=== PATIENT | female | born 1980 | race Caucasian/White ===

== ENCOUNTER 2016-09-08 15:07 | Emergency (ER) | payer SELFPAY ==
[~2016-09-08] VITALS: Ht 162.6 cm; Wt 90.1 kg
[~2016-09-08 15:07] MED LIST: ALIVE PO; lactaid PO
[2016-09-08 15:12] VITALS: TEMP 36.9; Ht 162.6 cm; Wt 90.1 kg
[2016-09-08 15:46] LABS: BASO % 0.5 %; BASO ABS # 0.03 K/uL (0-0.2); COMPLETE YES; HEMATOCRIT 30.8 % (37-47); IG% 0.2 %; LYMPH % 31.4 %; LYMPH ABS # 1.77 K/uL (1.2-3.4); MEAN CELL VOLUME 84.8 fL (80-100); MEAN CORPUSCULAR HEMOGLOBIN 28.7 pg (25-34); MEAN CORPUSCULAR HGB CONC 33.8 g/dl (32-36); MEAN PLATELET VOLUME 10.9 fL (7.4-10.4); MONO % 12.1 %; NEUT % 53.8 %; PLATELET COUNT 280 K/uL (130-400); RED BLOOD COUNT 3.63 M/uL (4.2-5.4); WHITE BLOOD COUNT 5.64 K/uL (4.8-10.8)
[2016-09-08 16:01] LABS: BUN/CREATININE RATIO 11.5 (10-20); CALCIUM 8.1 mg/dl (8.5-10.1); CREATININE 0.95 mg/dl (0.60-1.20); POTASSIUM 3.6 mmol/L (3.5-5.1)
[2016-09-08 16:04] LABS: ALB/GLOB RATIO 0.8 (0.9-2)
[2016-09-08] MEDS ORDERED: MULT-513 PO (16:07)
[2016-09-08] MEDS ORDERED: FERR325T PO (16:09)
[2016-09-08 17:07] LABS: PREG INTERNAL NEGATIVE QC NEG CLEAR BACKGROUND; PREG INTERNAL POSITIVE QC POS CONTROL LINE
[2016-09-08 17:12] LABS: MANUAL MICROSCOPIC REQUIRED? YES; REVIEW REQ? NO; URINE APPEARANCE TURBID (CLEAR); URINE COLOR RED
[2016-09-08 17:13] LABS: SULFASALICYLIC ACID POS (NEG)
[2016-09-08 17:19] LABS: URINE AMORPHOUS SEDIMENT PRESENT (NONE PRSENT); URINE BACTERIA NEG (NEG); URINE RBC >30 /hpf (0-4)
[2016-09-08 17:20] LABS: ZZUR CULT IF INDIC CLEAN CATCH NO
--- NOTE | 2016-09-08 17:32 | DIAGNOSTIC IMAGING REPORT ---
ULTRASOUND OF THE PELVIS CLINICAL HISTORY: Pelvic pain. Heavy vaginal bleeding. COMPARISON STUDY: No priors. TECHNIQUE: Real-time, grayscale, and color flow sonography of the pelvis is performed both transabdominally and endovaginally. Images are reviewed in the transverse and longitudinal planes. FINDINGS: Uterus: The uterus is normal in size and echotexture, measuring 8.3 x 4.8 x 6.3 cm. Endometrium: The endometrium is normal in appearance, and the endometrial stripe is normal in thickness measuring up to 0.6 cm. Nonspecific flow suggested within the endometrium on color imaging. Ovaries: The left ovary was not visualized. The right ovary is normal in appearance and measures 2.1 x 1.2 x 1.5 cm. Small right ovarian follicles are identified. Normal Doppler waveforms are shown within the right ovary. Pelvis: There is trace free fluid in the cul-de-sac. No concerning adnexal lesion is seen. IMPRESSION: 1. No acute sonographic abnormality is identified. 2. Nonvisualization of the left ovary. 3. There is nonspecific vascularity suggested within the endometrium on color imaging. The endometrial stripe is normal in thickness measuring up to 6 mm. 4. There is trace free fluid in the cul-de-sac, likely within physiologic limits. Electronically signed by: Gerard Shearer M.D. 09/08/2016 5:31 PM Dictated Date/Time: 09/08/2016 5:29 PM
[2016-09-08 17:34] VITALS: BP 106/80; PULSE 91; O2SAT 96
[2016-09-08] MEDS ORDERED: KETOROLAC TROMETHAMINE 30 MG/ML VIAL IV STA (17:35)
--- NOTE | 2016-09-08 18:07 | EMERGENCY ROOM VISIT NOTE ---
History First contact with patient: 15:14 Chief Complaint: ED VAG BLEEDING Stated Complaint: BAD CRAMPS AND LOWER BACK PAIN, TENDERNESS History of Present Illness The patient is a 36 year old female who presents to the Emergency Room with complaints of heavy vaginal bleeding and cramps. The patient reports that she has had issues with her periods for the past 1 year and a half. She reports that last month, her menstrual period lasted for 3 weeks. She followed up with her BLOWER INSTALLER and they prescribed her Aygestin and scheduled her for an ultrasound. She states that her period this month began approximately 9 days ago. She reports that it has been very painful and heavier than normal. She has been changing a pad every 1-2 hours, but on a few occasions she has blood through a pad after only 20 minutes. She does report a history of anemia and states that her most recent hemoglobin was stable. She does report a family history of heavy periods which required hysterectomy. She states the pain as a cramping sensation in her lower abdomen which radiates to the back. She rates the discomfort a 6/10. She has been taking Midol and using a heating pad for the pain. She denies a family history of bleeding disorders. She denies any urinary symptoms, nausea, vomiting or chance of . Review of Systems A complete 10-point Review of Systems was discussed with the patient, with pertinent positives and negatives listed in the History of Present Illness. All remaining Review of Systems questions can be considered negative unless otherwise specified. Past Medical/Surgical History Medical Problems: (1) PREV DELIVRY W/ OR W/O MENT ANTEPART COND Social History Smoking Status: Never Smoker Alcohol Use: other Drug Use: none Marital Status: , Housing Status: lives with family Occupation Status: employed Current/Historical Medications Scheduled Ferrous Sulfate (Ferrous Sulfate), 1 TAB PO BID Multivitamins/Minerals (Mvi With Minerals), 1 TAB PO DAILY Allergies Coded Allergies: No Known Allergies (Unverified , 09/08/16) Physical Exam Vital Signs Date Time Temp Pulse Resp B/P Pulse Ox O2 Delivery O2 Flow Rate FiO2 09/08/16 17:34 91 18 106/80 96 Room Air 09/08/16 16:33 94 18 127/75 99 Room Air 09/08/16 15:12 36.9 92 18 144/88 97 Room Air Pain Rating (0-10): 8.0 Physical Exam VITALS: Vitals are noted on the nurse's note and reviewed by myself. Vital signs stable. GENERAL: This is a 36-year-old female, in no acute distress, nondiaphoretic, well-developed well-nourished. SKIN: Capillary reflex less than 2 seconds. HEENT: Normocephalic. PERRLA. EOMI. Nares patent. Mucous membranes moist. Neck is supple without nuchal rigidity. HEART: Regular rate and rhythm without murmurs gallops or rubs. LUNGS: Clear to auscultation bilaterally without wheezes, rales or rhonchi. ABDOMEN: Positive bowel sounds x 4. Soft, nondistended, mild tenderness to palpation across the lower abdomen. NEURO: Patient was alert and oriented to person place and time. Medical Decision & Procedures ER Provider Diagnostic Interpretation: ULTRASOUND OF THE PELVIS CLINICAL HISTORY: Pelvic pain. Heavy vaginal bleeding. COMPARISON STUDY: No priors. TECHNIQUE: Real-time, grayscale, and color flow sonography of the pelvis is performed both transabdominally and endovaginally. Images are reviewed in the transverse and longitudinal planes. FINDINGS: Uterus: The uterus is normal in size and echotexture, measuring 8.3 x 4.8 x 6.3 cm. Endometrium: The endometrium is normal in appearance, and the endometrial stripe is normal in thickness measuring up to 0.6 cm. Nonspecific flow suggested within the endometrium on color imaging. Ovaries: The left ovary was not visualized. The right ovary is normal in appearance and measures 2.1 x 1.2 x 1.5 cm. Small right ovarian follicles are identified. Normal Doppler waveforms are shown within the right ovary. Pelvis: There is trace free fluid in the cul-de-sac. No concerning adnexal lesion is seen. IMPRESSION: 1. No acute sonographic abnormality is identified. 2. Nonvisualization of the left ovary. 3. There is nonspecific vascularity suggested within the endometrium on color imaging. The endometrial stripe is normal in thickness measuring up to 6 mm. 4. There is trace free fluid in the cul-de-sac, likely within physiologic limits. Laboratory Results 09/08/16 15:31 Red Blood Count 3.63, Mean Corpuscular Volume 84.8, Mean Corpuscular Hemoglobin 28.7, Mean Corpuscular Hemoglobin Concent 33.8, Mean Platelet Volume 10.9, Neutrophils (%) (Auto) 53.8, Lymphocytes (%) (Auto) 31.4, Monocytes (%) (Auto) 12.1, Eosinophils (%) (Auto) 2.0, Basophils (%) (Auto) 0.5, Neutrophils # (Auto ) 3.04, Lymphocytes # (Auto) 1.77, Monocytes # (Auto) 0.68, Eosinophils # (Auto ) 0.11, Basophils # (Auto) 0.03 09/08/16 15:31 Test 09/08/16 15:31 09/08/16 16:25 White Blood Count 5.64 K/uL (4.8-10.8) Red Blood Count 3.63 M/uL (4.2-5.4) Hemoglobin 10.4 g/dL (12.0-16.0) Hematocrit 30.8 % (37-47) Mean Corpuscular Volume 84.8 fL (80-100) Mean Corpuscular Hemoglobin 28.7 pg (25-34) Mean Corpuscular Hemoglobin Concent 33.8 g/dl (32-36) Platelet Count 280 K/uL (130-400) Mean Platelet Volume 10.9 fL (7.4-10.4) Neutrophils (%) (Auto) 53.8 % Lymphocytes (%) (Auto) 31.4 % Monocytes (%) (Auto) 12.1 % Eosinophils (%) (Auto) 2.0 % Basophils (%) (Auto) 0.5 % Neutrophils # (Auto) 3.04 K/uL (1.4-6.5) Lymphocytes # (Auto) 1.77 K/uL (1.2-3.4) Monocytes # (Auto) 0.68 K/uL (0.11-0.59) Eosinophils # (Auto) 0.11 K/uL (0-0.5) Basophils # (Auto) 0.03 K/uL (0-0.2) RDW Standard Deviation 41.9 fL (36.4-46.3) RDW Coefficient of Variation 13.6 % (11.5-14.5) Immature Granulocyte % (Auto) 0.2 % Immature Granulocyte # (Auto) 0.01 K/uL (0.00-0.02) Anion Gap 7.0 mmol/L (3-11) Est Creatinine Clear Calc Drug Dose 89.0 ml/min Estimated GFR () 89.3 Estimated GFR (Non- 77.1 BUN/Creatinine Ratio 11.5 (10-20) Calcium Level 8.1 mg/dl (8.5-10.1) Total Bilirubin 0.4 mg/dl (0.2-1) Aspartate Amino Transf (AST/SGOT) 10 U/L (15-37) Alanine Aminotransferase (ALT/SGPT) 23 U/L (12-78) Alkaline Phosphatase 80 U/L (45-117) Total Protein 7.6 gm/dl (6.4-8.2) Albumin 3.4 gm/dl (3.4-5.0) Globulin 4.2 gm/dl (2.5-4.0) Albumin/Globulin Ratio 0.8 (0.9-2) Urine Color RED Urine Appearance TURBID (CLEAR) Urine pH (4.5-7.5) Urine Specific [place] (1.000-1.030) Urine Protein (NEG) Urine Glucose (UA) (NEG) Urine Ketones (NEG) Urine Occult Blood (NEG) Urine Nitrite (NEG) Urine Bilirubin (NEG) Urine Urobilinogen (NEG) Urine Leukocyte Esterase (NEG) Urine RBC >30 /hpf (0-4) Urine WBC 1-5 /hpf (0-5) Urine Epithelial Cells >30 /lpf (0-5) Urine Amorphous Sediment PRESENT (NONE PRSENT) Urine Bacteria NEG (NEG) Urine Hyaline Casts 5-10 /lpf (0-5) Urine Test NEG (NEG) Medications Administered Medications (Trade) Dose Ordered Sig/Milly Route Start Time Stop Time Status Last Admin Dose Admin Ketorolac Tromethamine (Toradol Inj) 30 mg NOW STAT IV 09/08/16 17:35 09/08/16 17:36 DC 09/08/16 17:40 30 MG Medical Decision Differential diagnosis includes endometriosis, uterine fibroid, ectopic , abnormal uterine bleeding, malignancy, among others. The patient was evaluated as above. Labs were drawn and IV access was obtained. Imaging studies were performed and read by radiology as above. The patient was medicated with 30 mg Toradol for her cramping. The patient was reassessed multiple times during their stay in the emergency department and remained in stable condition. The patient is a 36-year-old female who presents today complaining of pelvic cramping and heavy vaginal bleeding. Labs revealed no leukocytosis or concerning electrolyte abnormalities. Patient is anemic with a hemoglobin of 10.4, but this does appear to be baseline for the patient. Her most recent hemoglobin earlier this month was 10.6. Urinalysis was not suggestive of infection. Urine was negative. Pelvic ultrasound was performed and read by radiology and showed a nonspecific vascularity of the endometrium with a normal endometrial thickness. I spoke with Dr. Montana of [facility]/ ROTOR CASTING MACHINE SETUP OPERATOR, who agreed that the patient likely will need definitive surgical treatment of her abnormal bleeding. He recommended an Aygestin taper and follow-up with BLOWER INSTALLER this week. The patient was given a handwritten prescription for the Aygestin taper and instructed to call BLOWER INSTALLER tomorrow. Conservative measures were discussed with the patient. She will return sooner for any worsening of her current condition. Based on the patient's presentation, lab results, and imaging studies, I feel the patient is stable for outpatient treatment. Discharge instructions were reviewed with the patient. The patient verbalized understanding of my assessment and treatment plan and was discharged home in good condition. Impression Primary Impression: Abnormal uterine bleeding Departure Information Dispostion Home / Self-Care Condition GOOD Referrals No Doctor, Assigned (PCP) Teresa Montana M.D. Patient Instructions My [facility] [place] [facility] Additional Instructions Take the Aygestin as prescribed. Call BLOWER INSTALLER tomorrow to schedule follow-up within one week. Return to the emergency department with any worsening bleeding, weakness, passing out or any other new/concerning symptoms.
[2016-11-04] MEDS ORDERED: IBUP-1050 PO (10:06)
[2016-11-04] MEDS ORDERED: IRON PO (10:06)
[2016-11-04] MEDS ORDERED: IBUP1CAP PO (10:06)
[2016-11-21] MEDS ORDERED: OXYC-57 PO (14:19)
== END 2016-09-08 18:10 | disposition home or self-care (01) ==
LOC: C.EDB 15:09
DX: N93.9 Abnormal uterine and vaginal bleeding, unspecified (principal); Z79.899 Other long term (current) drug therapy; D64.9 Anemia, unspecified

== ENCOUNTER 2016-11-21 09:28 | Observation (INO) | payer SELFPAY ==
[2016-11-04 10:06] VITALS: BMI 34.0
--- NOTE | 2016-11-04 10:38 | PAT Medication Instructions ---
Service Date November 04, 2016. Current Home Medication List Ibuprofen (Advil), 600 MG PO PRN Ibuprofen (Midol), 200 MG PO PRN Multivitamins/Minerals (Mvi With Minerals), 1 TAB PO QAM [Iron], 1 TAB PO QAM Medication Instructions For Your Scheduled Surgery - Hold the following medications the morning of surgery: Multivitamins/Minerals (Mvi With Minerals), 1 TAB PO QAM [Iron], 1 TAB PO QAM Ibuprofen (Advil), 600 MG PO PRN (otherwise okay to continue per surgeon) Ibuprofen (Midol), 200 MG PO PRN (otherwise okay to continue per surgeon) Nothing to eat or drink after midnight If you have any questions please call us at [phone] or [phone] or [phone]
--- NOTE | 2016-11-04 11:14 | DIAGNOSTIC IMAGING REPORT ---
CHEST PREADMISSION(PA/LAT) CLINICAL HISTORY: preop; enlarged thyroid COMPARISON STUDY: No previous studies for comparison. FINDINGS: The bones soft tissues and hemidiaphragms are normal. The cardiomediastinal silhouette is normal. The lungs are clear. The pulmonary vasculature is normal. IMPRESSION: Negative chest. Electronically signed by: Chase Posadas M.D. 11/04/2016 11:13 AM Dictated Date/Time: 11/04/2016 11:12 AM
[2016-11-04 11:30] LABS: BASO % 0.5 %; BASO ABS # 0.03 K/uL (0-0.2); COMPLETE YES; EOS % 1.2 %; HEMATOCRIT 34.3 % (37-47); IG% 0.2 %; LYMPH % 28.9 %; MEAN CELL VOLUME 80.9 fL (80-100); MEAN CORPUSCULAR HEMOGLOBIN 25.7 pg (25-34); MEAN CORPUSCULAR HGB CONC 31.8 g/dl (32-36); MEAN PLATELET VOLUME 11.2 fL (7.4-10.4); NEUT % 60.2 %; PLATELET COUNT 252 K/uL (130-400); RED BLOOD COUNT 4.24 M/uL (4.2-5.4); WHITE BLOOD COUNT 6.57 K/uL (4.8-10.8)
[2016-11-04 12:54] LABS: THYROID STIMULATING HORMONE 0.448 uIu/ml (0.300-4.500)
[2016-11-04 13:09] LABS: CALCIUM 8.4 mg/dl (8.5-10.1); CREATININE 0.82 mg/dl (0.60-1.20)
[~2016-11-21] VITALS: Ht 162.6 cm; Wt 90.4 kg
[2016-11-21] VITALS (8 sets, daily range): BP systolic 100–118; BP diastolic 66–79; PULSE 74–106; TEMP 36.4–37.2; O2SAT 95–98; Ht 162.6 cm; Wt 90.4 kg
[~2016-11-21 09:28] MED LIST changes: +ACETAMINOPHEN 1000 MG/100 ML IV IV ONE; -ALIVE PO; +ATROPINE SULFATE 0.1 MG/ML 5ML SYR IV PRN; +CEFAZOLIN 2000 MG/60 ML D5W 50 ML IV SCH; +DEXAMETHASONE SOD INJ 4 MG/ML VIAL ONE; +EpHEDrine SULFATE INJ 50 MG/ML AMP IV PRN; +FENTANYL CITRATE INJ 50 MCG/1 ML 2 ML VIAL IV PRN; +FENTANYL CITRATE INJ 50 MCG/1 ML 2 ML VIAL ONE; +GLYCOPYRROLATE INJ 0.2 MG/ML VIAL ONE; +HYDROmorphone INJ 1 MG/ML SYR IV PRN; +HYDROmorphone INJ 2 MG/ML SYR/VIAL ONE; +IBUP-1050 PO; +IBUP1CAP PO; +IRON PO; +LACTATED RINGER'S 1000ML 1,000 ML IV SCH; +LIDOCAINE HCL 2% 2 ML VIAL (20MG/ML) ONE; +MIDAZOLAM HCL 1 MG/ML 2ML VIAL ONE; +MULT-513 PO; +NEOSTIGMINE METHYLSULFATE 5 MG/5 ML SYR ONE; +ONDANSETRON INJ 2 MG/ML 2 ML VIAL IV PRN; +ONDANSETRON INJ 2 MG/ML 2 ML VIAL ONE; +PROPOFOL IV EMULSION 10 MG/ML 20 ML VIAL IV ONE; +ROCURONIUM BROMIDE 10 MG/ML 5 ML VIAL ONE; -lactaid PO
[2016-11-21] MEDS ORDERED: CETI10TA84 PO (10:04)
--- NOTE | 2016-11-21 11:42 | History & Physical Bridge Note ---
H&P Re-Evaluation Bridge Note: I have examined the patient, reviewed the History & Physical and in the interval since the performance of the History & Physical I have noted the following changes of clinical significance: No changes noted
[2016-11-21] MEDS ORDERED: BUPIVACAINE 0.5 % 5 MG/1 ML MPF 30ML VIAL ONE (11:56)
[2016-11-21] MEDS ORDERED: METHYLENE BLUE 0.5% 10 ML VIAL ONE (11:56)
[2016-11-21] MEDS ORDERED: ROCURONIUM BROMIDE 10 MG/ML 5 ML VIAL ONE (13:06)
[2016-11-21] MEDS ORDERED: FENTANYL CITRATE INJ 50 MCG/1 ML 2 ML VIAL ONE ×2 (13:40→14:40)
[2016-11-21] MEDS ORDERED: TISSEEL FIBRIN SEALANT 4ML TOP ONE (13:40)
[2016-11-21] MEDS ORDERED: LACTATED RINGER'S 1000ML 1,000 ML IV SCH (14:16)
--- NOTE | 2016-11-21 14:17 | [facility] Post Operative Brief Note ---
Immediate Operative Summary Operative Date Nov 21, 2016. Pre-Operative Diagnosis Menorrhagia Anemia Pelvic Pain Post-Operative Diagnosis Same as preop Procedure(s) Performed Robotic-assisted Total Laparoscopic Hysterectomy, bilateral salpingectomy, cystoscopy Surgeon Dr. Montana Tail Sawyer Surgeon(s) Dr. Harley Estimated Blood Loss 20 cc Findings adhesions Specimens A: uterus, cervix, bilateral fallopian tubes Drains Rojo Anesthesia General Complication(s) None Disposition Recovery Room / PACU
--- NOTE | 2016-11-21 14:18 | Discharge Instructions ---
Discharge Instructions Date of Service Nov 21, 2016. Admission Reason for Admission: Menorrhagia, Anemia Discharge Discharge Diagnosis / Problem: menorrhagia Discharge Goals Goal(s): Routine recovery after surgery Activity Recommendations Activity Limitations: per Instructions/Follow-up section . Instructions / Follow-Up Instructions / Follow-Up POST OPERATIVE: BOWEL FUNCTION/MEDICATIONS: 1. Constipation pain and discomfort are the most common complaints 5-7 days after surgery. Points 2-6 address the things that can help. 2. Chewing gum can help stimulate the gut and help improve digestion and motility. 3. Milk of Magnesia 1-2 times per day until return of bowel function. 4. Colace is a stool softener that helps. Taking this 2-3 times per day until bowel function returns to normal is highly recommended. 5. Dulcolax is a laxative that may be used if several days have passed without a bowel movement. Alternatively Miralax may be used daily instead. 6. Drink plenty of fluids as this will also reduce constipation. 7. Narcotic pain medications will be prescribed by your physician. They are safe to use and we encourage you to use them. If you are not allergic, ibuprofen will also be prescribed. Many patients will be able to transition off of the narcotic medications to ibuprofen by postoperative day 3. ACTIVITY RECOMMENDATIONS: 1. Get plenty of rest and listen to your body. If you are tired, take a nap. 2. You may shower, but do not take a tub bath until you see your doctor at the 2 week post operative visit. 3. Absolutely NO intercourse and nothing in the vagina until you are examined by your doctor at the 6 week visit. At that visit it will be determined when such activities can be resumed. This can range from 6-12 weeks after your surgery depending on healing time. 4. The main physical activity in the first week should be walking. By the second week you can slowly increase activity. There are no limits on walking up and down stairs. 5. Do not lift more than 5-10 lbs for 4 weeks. Remember the "one-handed rule", i.e. if you can lift something with only one hand it's likely okay. 6. Minimize line installation supervisor like vacuuming and exercising for 4 weeks. "Overdoing it" can lead to incisions not healing, pain and vaginal bleeding , so again, listen to your body. 7. Driving can be resumed when you feel able. Do not drive within 24 hours of taking a narcotic medication. EXPECTATIONS: 1. Vaginal spotting, bleeding and discharge are common after surgery. There may even be an odor to the discharge which is often related to sutures used in the vagina. If you experience heavy vaginal bleeding, call the office number day or night [phone]. 2. Bladder discomfort is common after surgery from the catheter. This usually resolves in 1-2 weeks. 3. By the end of the 3rd or 4th week you should be feeling much better. It may take up to 6 weeks for your energy levels to return to normal. 4. Narcotic medications have side effects such as: dizziness, headache, nausea and/or vomiting. If you suspect your pain medication is causing problems, call our office and we may be able to prescribe an alternate medication. 5. The skin incisions are often covered with a liquid bandage. This will gradually peel off over time. CALL THE OFFICE IF YOU HAVE ANY OF THE FOLLOWIN. Temperature of 101 degrees or higher. 2. Severe abdominal or pelvic pain not relieved by pain medication. 3. Persistent nausea or vomiting. 4. Increased pain with urination or difficulty urinating. 5. Bright red bleeding that soaks more than 1 pad per hour. CONTACT PHONE NUMBERS: Main Office: [phone] Surgical Nurse: [phone] extension [phone] Avoid all tobacco products. If you need help to stop smoking, call [place]'s FREE QUITLINE at . This is a free call. Current Hospital Diet Patient's current hospital diet: Discharge Diet Recommended Diet: Regular Diet Procedures Procedures Performed: Robotic-assisted Total Laparoscopic Hysterectomy, bilateral salpingectomy, cystoscopy Pending Studies Studies pending at discharge: no Medical Emergencies . Who to Call and When: Medical Emergencies: If at any time you feel your situation is an emergency, please call 911 immediately. . Non-Emergent Contact Non-Emergency issues call your: Carpentry Foreman . . "Provider Documentation" section prepared by Marvin Montana. . VTE Core Measure Inpt VTE Proph given/why not?: Noah Bravo, LEIGH's
[2016-11-21] MEDS ORDERED: OXYC-57 PO (14:19)
[2016-11-21] MEDS ORDERED: MEPERIDINE HCL 50 MG/ML CARP IV PRN ×2 (14:30)
[2016-11-21] MEDS ORDERED: OXYCODONE/ACETAMINOPHEN 5-325 TAB PO PRN ×2 (14:30)
[2016-11-21] MEDS ORDERED: MAGNESIUM HYDROXIDE SUSP 30 ML UDC PO PRN (14:30)
[2016-11-21] MEDS ORDERED: ACETAMINOPHEN 325 MG TAB PO PRN (14:30)
[2016-11-21] MEDS ORDERED: IBUPROFEN 600 MG TAB PO PRN (14:30)
[2016-11-21] MEDS ORDERED: ZOLPIDEM TARTRATE 5 MG TAB PO PRN (14:30)
[2016-11-21] MEDS ORDERED: PROMETHAZINE HCL INJ 25 MG in SODIUM CHLORIDE 0.9% 50ML 50 ML IV PRN (14:30)
[2016-11-21] MEDS ORDERED: BISACODYL 10 MG SUPP PR PRN (14:30)
[2016-11-21] MEDS ORDERED: ONDANSETRON INJ 2 MG/ML 2 ML VIAL IV PRN (14:30)
[2016-11-21] MEDS ORDERED: SIMETHICONE 80 MG CHEW PO PRN (14:30)
[2016-11-21] MEDS ORDERED: KETOROLAC TROMETHAMINE 30 MG/ML VIAL IV. PRN (14:30)
[2016-11-21] MEDS ORDERED: PROMETHAZINE HCL INJ 12.5 MG in SODIUM CHLORIDE 0.9% 50ML 50 ML IV PRN (14:30)
--- NOTE | 2016-11-21 15:14 | Anesthesiology Progress Note ---
Anesthesia Post Op Note Date & Time Nov 21, 2016 at 15:14 Vital Signs Pain Intensity: 2 Vital Signs Past 12 Hours Date Time Temp Pulse Resp B/P (MAP) Pulse Ox O2 Delivery O2 Flow Rate FiO2 11/21/16 15:05 36.2 83 16 103/62 98 Nasal Cannula 3 11/21/16 14:55 60 14 100/66 95 Nasal Cannula 3 11/21/16 14:45 92 16 112/61 97 Nasal Cannula 3 11/21/16 14:35 88 14 112/67 100 Mask 10 11/21/16 14:27 36.7 76 14 117/70 100 Mask 10 11/21/16 09:50 36.6 77 18 118/79 (92) 98 Room Air Notes Mental Status: alert / awake / arousable, participated in evaluation Pt Amnestic to Procedure: Yes Nausea / Vomiting: adequately controlled Pain: adequately controlled Airway Patency, RR, SpO2: stable & adequate BP & HR: stable & adequate Hydration State: stable & adequate Anesthetic Complications: no major complications apparent
[2016-11-21] MEDS: LACTATED RINGER'S 1000ML 1,000 ML IV SCH (15:22)
[2016-11-21] MEDS ORDERED: IV FLUIDS COMPLETED PRN (15:30)
--- NOTE | 2016-11-21 16:11 | OPERATIVE REPORT ---
DATE OF OPERATION: 11/21/2016 PREOPERATIVE DIAGNOSIS: Menorrhagia. POSTOPERATIVE DIAGNOSIS: Menorrhagia. PROCEDURE: Da Sung robotically-assisted total laparoscopic hysterectomy, bilateral salpingectomy with conservation of the ovaries, cystoscopy. SURGEON: Marvin Montana MD BLANKET CUTTER HAND: Jose Martin Harley MD ESTIMATED BLOOD LOSS: 20 mL. FINDINGS: Adhesions. SPECIMENS: Uterus, cervix, and bilateral fallopian tubes. DRAINS: Rojo catheter. ANESTHETIC: General. COMPLICATIONS: None. DISPOSITION: None. DISPOSITION: To recovery room. DESCRIPTION OF PROCEDURE: Cindy was given a general anesthetic, prepped and draped in dorsal lithotomy position. IV for prophylactic antibiotics given, Rojo catheter placed in her bladder and a VCare sewn into her cervix in usual fashion. Gloves changed and a supraumbilical incision was made with scalpel. Using Peng technique, we did a cut down through the subcutaneous fat through the fascia in the midline. Rectus muscle split and peritoneal cavity entered. Blunt-tipped Peng trocar then placed. Balloon inflated and CO2 gas to insufflate the abdomen. FINDINGS: Upper abdomen normal, no sign of visceral organ injury or bleeding. Deep Trendelenburg position then obtained and 3 robotic ports, 2 in the right, 1 in the left placed and a left upper quadrant accessory port 11 mm bladeless. There were some loose adhesions in the anterior abdominal wall of omentum and as well the bladder flap was notable for some adhesions as well, but these were expected as she had 2 prior C-sections. Adnexa appeared normal, as did the uterus. No evidence of endometriosis. The ureter seemed to follow the normal course. Procedure was begun by docking the robot; arm #1 was monopolar rika, arm #2 was bipolar [place], arm #3 was a ProGrasp. Using the manipulator, we identified the fallopian tubes and each side and removed them. These were then removed through the accessory port. We then identified the ureter on each side. The utero-ovarian blood supply was then coagulated distal to the ovary on the left side and then cut with monopolar rika, same with the round ligament. The bladder flap was then dissected away. Uterine vessels on the left side skeletonized and then coagulated with the bipolar [place]. Once these were coagulated, these were cut with monopolar rika. The bladder flap was fully dissected away sharply without monopolar energy. Same process on the right was completed. Once the bladder flap was completely dissected away, we made an anterior colpotomy with the monopolar rika continuing this around to stay medial over uterine vessel ligations and then the cervix from the vagina. Uterus was then pulled into the vagina for pneumoperitoneum. Instrument exchanges then occurred. Arm #1 became the jigna needle chassis driver, arm #2 became the cobra 12-inch 2-0 V-lock suture placed. We then through the accessory port, closed the cuff from left to right and right to left, ensuring full thickness 1 cm at least vaginal mucosa bites. Suture was then cut so there was no tail and then needle removed through the accessory port. Of note, methylene blue had been given prior to this. There was no leakage noted. We then performed cystoscopy by removing the Rojo catheter visualized a normal bladder, no sign of damage or sutures and good strong jets of urine from both left and right ureter openings. Cystoscope removed and a new Rojo catheter placed. The uterus had been removed from the vagina. Bleeding was minimal. At this stage, we then after irrigation and suction, identified the cuff and it was hemostatic. We did apply 4 mL of Tisseel to the area laparoscopically and then undocked the robot. Instruments were removed under direct visualization. Robot undocked. Ports removed. Gas allowed to escape. Incisions all injected with 0.5% Marcaine. Fascia closed carefully with [id number] 0 Vicryl, subcutaneous fat closed with 0 Vicryl as well as the 11-mm incision, 4-0 subcuticular Monocryl closures as well. Sponge and instrument counts were correct. The patient sent to recovery room in stable condition. I attest to the content of the Intraoperative Record and any orders documented therein. Any exceptions are noted below. SARAHD
[2016-11-21 20:05] LABS: HEMATOCRIT 33.3 % (37-47)
[2016-11-21] MEDS ORDERED: DOCUSATE SODIUM 100 MG CAP PO SCH (21:00)
--- NOTE | 2016-11-22 10:24 | DISCHARGE SUMMARY ---
Cindy had a total laparoscopic hysterectomy on 11/21/2016. This procedure was uncomplicated, operative note has been dictated. Her course in hospital was uncomplicated. Several hours after her surgery, she met criteria. At that stage, she was ambulating well, tolerating oral pain medication and oral diet, was voiding well, and had no extremity pain. PHYSICAL EXAMINATION: Vital signs were stable, afebrile. IMPRESSION AND PLAN: Hemoglobin 10.9 in the evening which was the same as her preoperative hemoglobin. She met criteria, was given discharge instructions, pain medication, and told to follow up in the office.
== END 2016-11-21 21:05 | disposition home or self-care (01) ==
LOC: C.ACU 09:28 → C.MS4N 10:00 → ENRESERV 15:05
PROVIDERS: ADMIT Obstetrics & Gynecology; ATTEND Obstetrics & Gynecology
DX: N92.0 Excessive and frequent menstruation with regular cycle (principal); R10.2 Pelvic and perineal pain; N72 Inflammatory disease of cervix uteri; N83.8 Other noninflammatory disorders of ovary, fallopian tube and broad ligament; D64.9 Anemia, unspecified; E66.9 Obesity, unspecified; Z80.0 Family history of malignant neoplasm of digestive organs; Z83.3 Family history of diabetes mellitus; Z80.3 Family history of malignant neoplasm of breast; Z80.49 Family history of malignant neoplasm of other genital organs
CPT/HCPCS: 58542; S2900